=== PATIENT | female | born 1995 | race Two or more races ===

== ENCOUNTER 2021-03-19 16:52 | Emergency (ER) | payer OTHER ==
[~2021-03-19] VITALS: Ht 157.5 cm; Wt 59.3 kg
[2021-03-19] MEDS ORDERED: SODIUM CHLORIDE 0.9% 1,000ML IVBOLUS ONE (17:30)
[2021-03-19] MEDS ORDERED: ONDANSETRON 2MG/ML, 2ML IVPush ONE ×2 (17:30→19:30)
[2021-03-19] MEDS ORDERED: MAALOX/HYOSCYAMINE/LIDOCAINE 45 ML BTL PO ONE (17:30)
[2021-03-19] MEDS ORDERED: SODIUM CHLORIDE FLUSH 10ML SYR IVF ONE (17:30)
[2021-03-19] MEDS ORDERED: MAALOX/HYOSCYAMINE/LIDOCAINE 45 ML BTL ONE (17:33)
[2021-03-19] MEDS ORDERED: ONDANSETRON 2MG/ML, 2ML ONE ×2 (17:33→19:02)
--- NOTE | 2021-03-19 18:00 | NUR ---
PT STATES HAS HAD ABD PAIN 06/23 WITH N/V SINCE THIS AM WENT TO A URGENT CARE CLINIC AND THREW ANTI NAUSEA MEDICATION SHORTLY AFTER. PT CONTINUES TO VOMIT ON ARRIVAL WITH ABD CRAMPING IN CENTER OF ABD. IV MEDICATION GIVEN AFTER ULTRASOUND AND IV BOLUS INFUSING
[2021-03-19 18:30] LABS: BASOPHILS % (AUTO) 0 % (0-1); EOSINOPHILS % (AUTO) 0 % (1-7); LYMPHOCYTES % (AUTO) 11 % (22-44); MEAN CORPUSCULAR HEMOGLOBIN 30.9 pg (27.0-34.8); MEAN CORPUSCULAR HGB CONC 34.6 g/dL (32.4-35.8); MEAN PLATELET VOLUME 7.2 fL (7.4-10.4); MONOCYTES % (AUTO) 4 % (2-9); NEUTROPHILS % (AUTO) 85 % (42-75); PLATELET COUNT 394 x10^3/uL (130-400); RED BLOOD COUNT 5.12 x10^6/uL (3.82-5.3); RED CELL DISTRIBUTION WIDTH 13.5 % (9.6-15.2)
[2021-03-19 18:34] LABS: ALANINE AMINOTRANSFERASE 33 U/L (12-78); ALBUMIN 4.6 g/dL (3.4-5.0); ANION GAP 7 mmol/L (5-15); CALCIUM 9.2 mg/dL (8.5-10.1); CHLORIDE 109 mmol/L (98-107); CREATININE 0.98 mg/dL (0.55-1.02)
[2021-03-19 18:38] LABS: ALKALINE PHOSPHATASE 75 U/L (45-117); BILIRUBIN,TOTAL 0.6 mg/dL (0.2-1.0); TOTAL PROTEIN 9.2 g/dL (6.4-8.2)
[2021-03-19 18:50] LABS: MD SCAN
[2021-03-19] MEDS ORDERED: MORPHINE SULFATE 4 MG/ML, 1ML ONE ×2 (19:02→20:42)
--- NOTE | 2021-03-19 19:04 | NUR ---
PT DID NOT TOLERATE GI COCKTAIL AND VOMITED. C/O CONTINUED ABDOMINAL PAIN. AWARE AND ADDITIONAL ORDERS RECEIVED. UOB TO BATHROOM WITHOUT ASSISTANCE BUT UNABLE TO GIVE URINE SAMPLE. REPORT TO CATHERINE NGUYỄN
--- NOTE | 2021-03-19 19:10 | NUR ---
RECEIVED BS REPORT FROM [facility] TO ASSUME CARE OF PT. PT. C/O N/V DESPITE MEDS. PT. C/O 06/23 PAIN TO ABD. DISCUSSED WITH MD AND NEW ORDERS RECEIVED; PT. MEDICATED PER DEC. PT. AMBULATED ACROSS BARRETT TO BUT WAS UNABLE TO PROVIDE URINE SAMPLE. NS BOLUS INFUSING WELL.
[2021-03-19] MEDS ORDERED: MORPHINE SULFATE 4 MG/ML, 1ML IVPush PRN ×2 (19:30→20:30)
[2021-03-19] MEDS ORDERED: OMNIPAQUE 350 MG/ML, 100ML BOTTLE ONE (20:30)
--- NOTE | 2021-03-19 20:32 | NUR ---
PT. C/O 05/[address] MUNGUIA WAS IN FOR RECHECK AND TO DISCUSS PLAN FOR CT.
--- NOTE | 2021-03-19 20:45 | NUR ---
PT. MEDICATED FOR CONTINUED PAIN PER DEC. PT. TO CT VIA DANIEL AT THIS TIME.
[2021-03-19] MEDS ORDERED: METOCLOPRAMIDE 5 MG/ML, 2ML IVPush ONE (21:30)
[2021-03-19] MEDS ORDERED: METOCLOPRAMIDE 5 MG/ML, 2ML ONE (21:32)
[2021-03-19 21:59] VITALS: BP 119/88
== END 2021-03-19 22:06 | disposition home or self-care (01) ==
LOC: ED 19:25
DX: R10.13 Epigastric pain (principal); R11.2 Nausea with vomiting, unspecified; R19.7 Diarrhea, unspecified
CPT/HCPCS: 36415; 74177; 76700; 80053; 83690; 84703; 85025; 96361; 96374; 96375; 96376; 99285; J2270; J2405; J2765; J7030; Q9967

== ENCOUNTER 2021-03-22 03:30 | Emergency (ER) | payer OTHER ==
[~2021-03-22] VITALS: Ht 160 cm; Wt 59.2 kg
--- NOTE | 2021-03-22 03:46 | NUR ---
PT PRESENTS TO ED WITH ABD PAIN WITH N/V SINCE 1899 YESTERDAY. PT STATES IT FEELS LIKE THERE IS SOMETHING STUCK AND THAT'S WHY I HAVE TO THROW UP. PT IS HOOKED TO THE MONITORS AND IN A GOWN. RESTING ON GURNEY
[2021-03-22] MEDS ORDERED: DIPHENHYDRAMINE 50 MG/ML, 1ML IVPush ONE (04:00)
[2021-03-22] MEDS ORDERED: MORPHINE SULFATE 4 MG/ML, 1ML IVPush PRN (04:00)
[2021-03-22] MEDS ORDERED: SODIUM CHLORIDE 0.9% 1,000ML IVBOLUS ONE (04:00)
[2021-03-22] MEDS ORDERED: ONDANSETRON 2MG/ML, 2ML IVPush ONE (04:00)
[2021-03-22] MEDS ORDERED: ONDANSETRON 2MG/ML, 2ML ONE (04:01)
[2021-03-22] MEDS ORDERED: DIPHENHYDRAMINE 50 MG/ML, 1ML ONE (04:01)
[2021-03-22] MEDS ORDERED: MORPHINE SULFATE 4 MG/ML, 1ML ONE (04:02)
--- NOTE | 2021-03-22 04:10 | NUR ---
20 G IV TO RIGHT AC, PT MEDICATED, RESTING ON GURNEY
[2021-03-22 04:18] LABS: BASOPHILS % (AUTO) 0 % (0-1); EOSINOPHILS % (AUTO) 0 % (1-7); LYMPHOCYTES % (AUTO) 11 % (22-44); MEAN CORPUSCULAR HEMOGLOBIN 31.4 pg (27.0-34.8); MEAN CORPUSCULAR HGB CONC 35.3 g/dL (32.4-35.8); MEAN PLATELET VOLUME 7.1 fL (7.4-10.4); MONOCYTES % (AUTO) 4 % (2-9); NEUTROPHILS % (AUTO) 85 % (42-75); PLATELET COUNT 367 x10^3/uL (130-400); RED CELL DISTRIBUTION WIDTH 12.9 % (9.6-15.2)
[2021-03-22 04:27] LABS: ALANINE AMINOTRANSFERASE 29 U/L (12-78); ALBUMIN 4.1 g/dL (3.4-5.0); ANION GAP 12 mmol/L (5-15); CALCIUM 8.6 mg/dL (8.5-10.1); CHLORIDE 106 mmol/L (98-107); CREATININE 0.96 mg/dL (0.55-1.02)
[2021-03-22 04:31] LABS: ALKALINE PHOSPHATASE 68 U/L (45-117); BILIRUBIN,TOTAL 0.5 mg/dL (0.2-1.0)
--- NOTE | 2021-03-22 04:35 | NUR ---
PT RESTING ON GURNEY, DENIES NEEDS OF THIS TIME.
[2021-03-22] MEDS ORDERED: METOCLOPRAMIDE 5 MG/ML, 2ML ONE (05:27)
[2021-03-22] MEDS ORDERED: METOCLOPRAMIDE 5 MG/ML, 2ML IVPush ONE (05:30)
--- NOTE | 2021-03-22 05:58 | NUR ---
Patient/Caregiver given discharge instructions and they have confirmed that they understand the instructions. Patient ambulatory with steady gait.
[2021-03-22 05:59] VITALS: BP 111/80
== END 2021-03-22 06:08 | disposition home or self-care (01) ==
LOC: ED 04:28
DX: R10.13 Epigastric pain (principal); R11.2 Nausea with vomiting, unspecified; F12.129 Cannabis abuse with intoxication, unspecified; Z90.49 Acquired absence of other specified parts of digestive tract
CPT/HCPCS: 36415; 80053; 83690; 84703; 85025; 96361; 96374; 96375; 99284; J1200; J2270; J2405; J2765; J7030

== ENCOUNTER 2021-03-24 08:36 | Emergency (ER) | payer OTHER ==
[~2021-03-24] VITALS: Ht 160 cm; Wt 58.7 kg
[2021-03-24] MEDS ORDERED: ZIPRASIDONE 20 MG INJ IM ONE ×2 (09:23→09:30)
--- NOTE | 2021-03-24 09:37 | NUR ---
patient up to restroom to void-unable to obtain ua medicated per emar for rlq/right flank pain at 07/23 lab at bedside at [id number] Records requested from [facility] at 0999
[2021-03-24 09:46] LABS: BASOPHILS % (AUTO) 0 % (0-1); EOSINOPHILS % (AUTO) 0 % (1-7); LYMPHOCYTES % (AUTO) 19 % (22-44); MEAN CORPUSCULAR HEMOGLOBIN 30.9 pg (27.0-34.8); MEAN PLATELET VOLUME 7.1 fL (7.4-10.4); MONOCYTES % (AUTO) 9 % (2-9); NEUTROPHILS % (AUTO) 72 % (42-75); PLATELET COUNT 384 x10^3/uL (130-400); RED BLOOD COUNT 4.84 x10^6/uL (3.82-5.3)
[2021-03-24 09:57] LABS: ALANINE AMINOTRANSFERASE 45 U/L (12-78); ALBUMIN 4.1 g/dL (3.4-5.0); ANION GAP 13 mmol/L (5-15); CALCIUM 8.9 mg/dL (8.5-10.1); CHLORIDE 104 mmol/L (98-107); CREATININE 0.98 mg/dL (0.55-1.02)
[2021-03-24 10:02] LABS: ALKALINE PHOSPHATASE 56 U/L (45-117); BILIRUBIN,TOTAL 0.8 mg/dL (0.2-1.0); TOTAL PROTEIN 7.5 g/dL (6.4-8.2)
[2021-03-24 10:02] LABS: MICROSCOPIC INDICATED
--- NOTE | 2021-03-24 10:26 | NUR ---
WITH REASSESSMENT RIGHT FLANK PAIN UNCHANGED (07/23) ERP MADE AWARE, ASKED FOR ADDITIONAL MEDICATIONS/FURTHER WORKUP REPORT TO CHASTITY NGUYỄN
[2021-03-24] MEDS ORDERED: MORPHINE SULFATE 4 MG/ML, 1ML IVPush PRN (11:00)
[2021-03-24] MEDS ORDERED: METOCLOPRAMIDE 5 MG/ML, 2ML ONE (11:07)
[2021-03-24] MEDS ORDERED: MORPHINE SULFATE 4 MG/ML, 1ML ONE (11:07)
[2021-03-24] MEDS ORDERED: DIPHENHYDRAMINE 50 MG/ML, 1ML ONE (11:07)
--- NOTE | 2021-03-24 11:08 | NUR ---
MEDICATED PER EMAR FOR CONTINUED RLQ PAIN AT 07/23
--- NOTE | 2021-03-24 11:23 | NUR ---
report taken from [facility], care assumed at this time.
--- NOTE | 2021-03-24 11:58 | NUR ---
PT SLEEPING, RESPS EVEN AND UNLABORED. BP AND SPO2 MONITORS IN PLACE. REPORT TO BREAK RN IRASEMA.
[2021-03-24] MEDS ORDERED: DIPHENHYDRAMINE 50 MG/ML, 1ML IVPush ONE (12:00)
[2021-03-24] MEDS ORDERED: METOCLOPRAMIDE 5 MG/ML, 2ML IVPush ONE (12:00)
--- NOTE | 2021-03-24 13:00 | NUR ---
PT SLEEPING, RESPS EVEN AND UNLABORED. BP AND SPO2 MONITORS IN PLACE.
--- NOTE | 2021-03-24 14:00 | NUR ---
PT SLEEPING, RESPS EVEN AND UNLABORED. PT TO BE DC'D WHEN AWAKE AND ALERT.
[2021-03-24 15:05] VITALS: BP 134/86
--- NOTE | 2021-03-24 15:09 | NUR ---
PT A&O, RESPS EVEN AND UNLABORED. GIVEN WATER, TOLERATED WELL WITH NO N/V. PT HAS NO COMPLAINT AT THIS TIME. PT REQUESTS PAIN MEDICATION FOR DISCHARGE, AURELIA JIMENEZ NOTIFIED. EDPA DECLINES TO ORDER AT THIS TIME. PT GIVEN DC INSTRUCTIONS WITH SCRIPT FOR TYLENOL/IBUPROFEN AND GI FOLLOW UP. PT HAS GI FOLLOW UP IN SEVERAL DAYS. PT GIVEN DIETARY EDUCATION AND RETURN CRITERIA. PT EDUCATED NOT TO DRIVE SEDATIVE MEDS WERE ADMINISTERED IN ED. PIV DC'D WITH TIP INTACT. PT AMBULATORY TO DC DESK WITH STEADY GAIT, ACCOMPANIED BY MOTHER WHO IS DRIVING HER HOME.
== END 2021-03-24 15:07 | disposition home or self-care (01) ==
LOC: ED 08:40
DX: R11.2 Nausea with vomiting, unspecified (principal); R10.84 Generalized abdominal pain; R31.9 Hematuria, unspecified; R00.0 Tachycardia, unspecified; Z90.49 Acquired absence of other specified parts of digestive tract
CPT/HCPCS: 36415; 80053; 81001; 83690; 84703; 85025; 96372; 96374; 96375; 99285; J1200; J2270; J2765; J3486

== ENCOUNTER 2021-03-25 00:04 | Emergency (ER) | payer OTHER ==
[~2021-03-25] VITALS: Ht 160 cm; Wt 58.0 kg
--- NOTE | 2021-03-25 00:28 | NUR ---
clinical research nurse: pt from lobby to room 40
[2021-03-25] MEDS ORDERED: MAALOX/HYOSCYAMINE/LIDOCAINE 45 ML BTL PO ONE (01:00)
[2021-03-25] MEDS ORDERED: DICYCLOMINE 10 MG/ML, 2ML IM ONE (01:00)
[2021-03-25] MEDS ORDERED: MORPHINE SULFATE 4 MG/ML, 1ML IVPush PRN (01:00)
[2021-03-25] MEDS ORDERED: DIAZEPAM 5 MG/ML, 2ML IV ONE (01:00)
[2021-03-25] MEDS ORDERED: SODIUM CHLORIDE 0.9% 1,000ML IVBOLUS ONE (01:00)
[2021-03-25] MEDS ORDERED: ONDANSETRON 2MG/ML, 2ML IVPush ONE (01:00)
[2021-03-25] MEDS ORDERED: SODIUM CHLORIDE FLUSH 10ML SYR IVF ONE (01:00)
[2021-03-25] MEDS ORDERED: ONDANSETRON 2MG/ML, 2ML ONE (01:09)
[2021-03-25] MEDS ORDERED: DICYCLOMINE 10 MG/ML, 2ML ONE (01:09)
[2021-03-25] MEDS ORDERED: MORPHINE SULFATE 4 MG/ML, 1ML ONE (01:09)
[2021-03-25] MEDS ORDERED: DIAZEPAM 5 MG/ML, 2ML ONE (01:09)
[2021-03-25] MEDS ORDERED: MAALOX/HYOSCYAMINE/LIDOCAINE 45 ML BTL ONE (01:10)
[2021-03-25 01:39] LABS: BASOPHILS % (AUTO) 1 % (0-1); EOSINOPHILS % (AUTO) 1 % (1-7); LYMPHOCYTES % (AUTO) 27 % (22-44); MEAN CORPUSCULAR HEMOGLOBIN 31.3 pg (27.0-34.8); MEAN CORPUSCULAR HGB CONC 35.5 g/dL (32.4-35.8); MEAN PLATELET VOLUME 7.2 fL (7.4-10.4); MONOCYTES % (AUTO) 13 % (2-9); NEUTROPHILS % (AUTO) 60 % (42-75); PLATELET COUNT 391 x10^3/uL (130-400); RED BLOOD COUNT 4.81 x10^6/uL (3.82-5.3); RED CELL DISTRIBUTION WIDTH 12.9 % (9.6-15.2)
[2021-03-25 01:48] LABS: ALANINE AMINOTRANSFERASE 57 U/L (12-78); ALBUMIN 4.3 g/dL (3.4-5.0); ANION GAP 12 mmol/L (5-15); CALCIUM 8.9 mg/dL (8.5-10.1); CHLORIDE 103 mmol/L (98-107); CREATININE 1.19 mg/dL (0.55-1.02)
[2021-03-25 01:52] LABS: ALKALINE PHOSPHATASE 61 U/L (45-117); TOTAL PROTEIN 8.1 g/dL (6.4-8.2)
[2021-03-25 02:43] LABS: MICROSCOPIC AUTO
[2021-03-25 02:57] VITALS: BP 123/68
== END 2021-03-25 02:59 | disposition home or self-care (01) ==
LOC: ED 01:00
DX: G89.29 Other chronic pain (principal); R10.84 Generalized abdominal pain; R10.13 Epigastric pain; R11.0 Nausea
CPT/HCPCS: 36415; 80053; 81001; 83690; 84703; 85025; 96361; 96372; 96374; 96375; 99284; J0500; J2270; J2405; J3360; J7030

== ENCOUNTER 2021-03-25 11:09 | Inpatient (IN) | payer OTHER ==
[~2021-03-25] VITALS: Ht 160 cm; Wt 60.7 kg
--- NOTE | 2021-03-25 11:23 | NUR ---
PT HERE FOR C/O RLQ ABD PAIN X6 DAYS, +N/V. PT STATES SHE HAS NOT HAD A BM IN 3 DAYS, SEEN IN ED EARLIER TODAY. PT ON ALL MONITORS. CALL LIGHT WITHIN REACH.
[2021-03-25] MEDS ORDERED: MAALOX/HYOSCYAMINE/LIDOCAINE 45 ML BTL ONE (11:43)
[2021-03-25] MEDS ORDERED: MAALOX/HYOSCYAMINE/LIDOCAINE 45 ML BTL PO ONE (12:00)
[2021-03-25] MEDS ORDERED: HYDROmorphone 1 MG/ML, 1ML INJ ONE (12:00)
--- NOTE | 2021-03-25 12:02 | NUR ---
PT CONTINUES TO C/O PAIN ON RLQ ABD. UPDATED ERMD. PER DR. MUNGUIA MEDICATE PT WITH 1MG DILAUDID IM.
--- NOTE | 2021-03-25 12:04 | NUR ---
1MG IM DILAUDID ADMINISTERED TO PT PER MD ORDER.
[2021-03-25] MEDS ORDERED: HYDROmorphone 1 MG/ML, 1ML INJ SQ ONE (12:11)
--- NOTE | 2021-03-25 12:44 | NUR ---
PT REPORTS PAIN RELIEF, STATES PAIN IS DOWN TO 4/10 ON PAIN SCALE.
--- NOTE | 2021-03-25 14:48 | NUR ---
PT RESTING IN NAD, STATES ABD PAIN HAS SUBSIDED SINCE MEDICATED.
--- NOTE | 2021-03-25 15:15 | NUR ---
HOSPITALIST PRESS WRITER AT BEDSIDE.
[2021-03-25] MEDS ORDERED: METOCLOPRAMIDE 5 MG/ML, 2ML IVPush PRN (15:30)
[2021-03-25] MEDS ORDERED: POLYETHYLENE GLYCOL 17 GM PACKET PO PRN (15:30)
[2021-03-25] MEDS ORDERED: BISACODYL 10 MG SUPP PR PRN (15:30)
[2021-03-25] MEDS ORDERED: ENALAPRILAT 1.25 MG/ML, 2ML IVPush PRN (15:30)
[2021-03-25] MEDS ORDERED: ONDANSETRON ODT 4 MG PO PRN (15:30)
[2021-03-25] MEDS ORDERED: ACETAMINOPHEN 325 MG TABLET PO PRN (15:30)
[2021-03-25 15:41] VITALS: BP 123/85
[2021-03-25] MEDS ORDERED: MAALOX/HYOSCYAMINE/LIDOCAINE 45 ML BTL PO PRN (16:00)
[2021-03-25] MEDS: NS + 20MEQ KCL 1,000 ML IV SCH (16:27)
[2021-03-25] MEDS: SENNA/DOCUSATE TABLET PO SCH (16:27)
[2021-03-25] MEDS: KETOROLAC 30 MG/1 ML IV PRN ×2 (17:07→23:00)
[2021-03-25] MEDS: morphine SULFATE 10 MG/ML, 1ML IVPush PRN ×5 (17:41→23:44)
[2021-03-25] MEDS: ONDANSETRON 2MG/ML, 2ML IVPush PRN (18:01)
[2021-03-25 19:26] VITALS: BP 133/89
[2021-03-26] MEDS: NS + 20MEQ KCL 1,000 ML IV SCH ×3 (00:03→20:21)
[2021-03-26] MEDS: morphine SULFATE 10 MG/ML, 1ML IVPush PRN ×5 (00:03→10:06)
[2021-03-26 00:08] VITALS: BP 130/85
[2021-03-26] MEDS: KETOROLAC 30 MG/1 ML IV PRN (04:41)
[2021-03-26 05:25] LABS: BASOPHILS % (AUTO) 1 % (0-1); EOSINOPHILS % (AUTO) 1 % (1-7); LYMPHOCYTES % (AUTO) 38 % (22-44); MEAN CORPUSCULAR HEMOGLOBIN 31.2 pg (27.0-34.8); MEAN CORPUSCULAR HGB CONC 35.3 g/dL (32.4-35.8); MEAN PLATELET VOLUME 7.3 fL (7.4-10.4); MONOCYTES % (AUTO) 13 % (2-9); NEUTROPHILS % (AUTO) 48 % (42-75); PLATELET COUNT 310 x10^3/uL (130-400); RED BLOOD COUNT 4.25 x10^6/uL (3.82-5.3); RED CELL DISTRIBUTION WIDTH 13.1 % (9.6-15.2)
[2021-03-26 05:37] LABS: ANION GAP 6 mmol/L (5-15); CALCIUM 7.9 mg/dL (8.5-10.1); CHLORIDE 109 mmol/L (98-107)
[2021-03-26 05:43] LABS: CREATININE 0.66 mg/dL (0.55-1.02)
[2021-03-26 07:00] VITALS: BP 107/63
[2021-03-26] MEDS: SENNA/DOCUSATE TABLET PO SCH ×2 (07:09→17:02)
[2021-03-26] MEDS ORDERED: PANTOPRAZOLE 40 MG IV IVPush SCH (07:30)
[2021-03-26] MEDS ORDERED: FENTANYL PF 100 MCG/2ML ONE (11:55)
[2021-03-26] MEDS ORDERED: MIDAZOLAM 1 MG/ML, 2ML ONE (11:55)
[2021-03-26] MEDS ORDERED: PROPOFOL 10 MG/ML, 20ML ONE (12:04)
[2021-03-26] MEDS ORDERED: FENTANYL PF 100 MCG/2ML IV PRN (12:30)
[2021-03-26] MEDS: ONDANSETRON 2MG/ML, 2ML IVPush PRN (13:52)
[2021-03-26] MEDS: PANTOPRAZOLE 40MG TABLET PO SCH (15:46)
[2021-03-26] MEDS ORDERED: PANTOPRAZOLE 40MG TABLET PO SCH (17:00)
[2021-03-26 17:58] VITALS: BP 115/75
[2021-03-26 20:13] VITALS: BP_SYST 120; BP_SYST 133; BP_DIAS 76; BP_DIAS 84
[2021-03-27 01:14] VITALS: BP 111/75
[2021-03-27 05:38] LABS: ANION GAP 4 mmol/L (5-15); CALCIUM 8.5 mg/dL (8.5-10.1); CHLORIDE 106 mmol/L (98-107); CREATININE 0.83 mg/dL (0.55-1.02)
[2021-03-27 06:59] VITALS: BP 114/81
[2021-03-27] MEDS: SENNA/DOCUSATE TABLET PO SCH (08:24)
[2021-03-27] MEDS: PANTOPRAZOLE 40MG TABLET PO SCH ×2 (08:25→16:21)
[2021-03-27] MEDS: KETOROLAC 30 MG/1 ML IV PRN ×2 (10:44→16:22)
[2021-03-27] MEDS: ONDANSETRON 2MG/ML, 2ML IVPush PRN (10:44)
[2021-03-27] MEDS: NS + 20MEQ KCL 1,000 ML IV SCH (10:48)
[2021-03-27 11:40] LABS: AMPHETAMINE SCREEN, URINE Negative (Negative); BARBITURATE SCREEN, URINE Negative (Negative); BENZODIAZEPINE SCREEN, URINE Positive (Negative); CANNABINOID SCREEN, URINE Positive (Negative); COCAINE SCREEN, URINE Negative (Negative); METHADONE SCREEN, URINE Negative (Negative); OPIATE SCREEN, URINE Positive (Negative)
[2021-03-27 12:25] VITALS: BP 120/86
[2021-03-27] MEDS ORDERED: MORPHINE SULFATE 4 MG/ML, 1ML IVPush ONE (18:00)
[2021-03-27 18:14] VITALS: BP 128/81
[2021-03-27 19:53] VITALS: BP 103/67
[2021-03-28 00:21] VITALS: BP 102/56
[2021-03-28] MEDS: PANTOPRAZOLE 40MG TABLET PO SCH (07:33)
[2021-03-28] MEDS: SENNA/DOCUSATE TABLET PO SCH (07:33)
[2021-03-28 08:19] VITALS: BP 118/75
[2021-03-28] MEDS ORDERED: ONDA4TAB7 PO (14:39)
[2021-03-28] MEDS ORDERED: PANT40TA6 PO (14:39)
== END 2021-03-28 15:03 | disposition home or self-care (01) | DRG 392 ==
LOC: ED 14:23 → EDIP 14:32 → 4NW 15:33 → 3N 03-27 19:36 → DCLOUNGE 03-28 15:00
PROVIDERS: ADMIT Internal Medicine; ATTEND Family Medicine
PROC: 0DB68ZX Excision of Stomach, Via Natural or Artificial Opening Endoscopic, Diagnostic (ICD-10-PCS; 2021-03-26)
PROC: 0DB98ZX Excision of Duodenum, Via Natural or Artificial Opening Endoscopic, Diagnostic (ICD-10-PCS; principal; 2021-03-26 12:00)
DX: K29.70 Gastritis, unspecified, without bleeding (principal); N17.9 Acute kidney failure, unspecified; E86.0 Dehydration; E87.6 Hypokalemia; F12.90 Cannabis use, unspecified, uncomplicated; G89.29 Other chronic pain; I10 Essential (primary) hypertension; K31.9 Disease of stomach and duodenum, unspecified; K59.00 Constipation, unspecified; M43.00 Spondylolysis, site unspecified; Z82.49 Family history of ischemic heart disease and other diseases of the circulatory system; Z90.49 Acquired absence of other specified parts of digestive tract
CPT/HCPCS: 36415; 74240; 80048; 80307; 83735; 85025; 86308; 87635; 88305; 96374; G0378; J1170; J1885; J2250; J2405; J2704; J3010; J3480; C9113; J2270

== ENCOUNTER 2021-03-29 14:01 | Inpatient (IN) | payer OTHER ==
[~2021-03-29] VITALS: Ht 160 cm; Wt 60.1 kg
[~2021-03-29 14:01] MED LIST: ONDA4TAB7 PO; PANT40TA6 PO
[2021-03-29 16:10] LABS: BASOPHILS % (AUTO) 0 % (0-1); EOSINOPHILS % (AUTO) 0 % (1-7); LYMPHOCYTES % (AUTO) 11 % (22-44); MEAN CORPUSCULAR HEMOGLOBIN 30.9 pg (27.0-34.8); MEAN CORPUSCULAR HGB CONC 34.2 g/dL (32.4-35.8); MEAN PLATELET VOLUME 7.5 fL (7.4-10.4); MONOCYTES % (AUTO) 6 % (2-9); NEUTROPHILS % (AUTO) 83 % (42-75); PLATELET COUNT 409 x10^3/uL (130-400); RED BLOOD COUNT 4.99 x10^6/uL (3.82-5.3); RED CELL DISTRIBUTION WIDTH 13.3 % (9.6-15.2)
[2021-03-29 16:24] LABS: ALBUMIN 4.6 g/dL (3.4-5.0); ANION GAP 10 mmol/L (5-15); CALCIUM 9.5 mg/dL (8.5-10.1); CHLORIDE 102 mmol/L (98-107)
[2021-03-29 16:30] LABS: ALANINE AMINOTRANSFERASE 48 U/L (12-78); ALKALINE PHOSPHATASE 59 U/L (45-117); BILIRUBIN,TOTAL 0.8 mg/dL (0.2-1.0); CREATININE 1.34 mg/dL (0.55-1.02); TOTAL PROTEIN 8.5 g/dL (6.4-8.2)
--- NOTE | 2021-03-29 17:57 | NUR ---
ERMD IN TO ASSESS PT. PT AWARE OF NEED FOR UA. PARTNER AT BEDSIDE. PT VISBILY UNCOMFORTABLE, RESTLESS, CRYING.
[2021-03-29] MEDS ORDERED: DIPHENHYDRAMINE 50 MG/ML, 1ML IV ONE (18:00)
[2021-03-29] MEDS ORDERED: METOCLOPRAMIDE 5 MG/ML, 2ML IVPush ONE (18:00)
[2021-03-29] MEDS ORDERED: SODIUM CHLORIDE 0.9% 1,000 ML IV ONE (18:00)
[2021-03-29] MEDS ORDERED: METOCLOPRAMIDE 5 MG/ML, 2ML ONE (18:04)
[2021-03-29] MEDS ORDERED: DIPHENHYDRAMINE 50 MG/ML, 1ML ONE (18:04)
--- NOTE | 2021-03-29 18:50 | NUR ---
PT REPORTS SOME RELIEF FROM PAIN, NO LONGER RESTLESS OR CRYING. WARM BLANKET APPLIED PER PT REQUEST. HOB TO LEVEL OF COMFORT. SIDE RAILS UP, CALL LIGHT IN REACH, IVF INFUSING PER EMAR.
[2021-03-29] MEDS ORDERED: MORPHINE SULFATE 4 MG/ML, 1ML ONE ×2 (19:55→21:26)
[2021-03-29] MEDS: MORPHINE SULFATE 4 MG/ML, 1ML IVPush PRN ×2 (19:57→21:31)
--- NOTE | 2021-03-29 19:59 | NUR ---
PT REMEDICATED WITH DIFFERENT MEDICATIONS TO HELP PAIN WHICH HAS RETURNED TO 06/23. PT LAYING BACK IN BED WITH MOTHER AT BEDSIDE. SIDE RAILS UP, CALL LIGHT IN REACH.
[2021-03-29] MEDS ORDERED: HALOPERIDOL 5 MG/ML IV ONE ×2 (20:30→21:00)
[2021-03-29] MEDS ORDERED: HALOPERIDOL 5 MG/ML ONE (20:52)
[2021-03-29] MEDS ORDERED: PANTOPRAZOLE 40 MG IV IVPush STA (21:22)
--- NOTE | 2021-03-29 21:22 | NUR ---
PT REPORTS SOME RELIEF FROM PAIN WITH HALDOL. UP TO BATHROOM WITHOUT SUCCESSFUL URINATION. PT BACK IN BED.
[2021-03-29] MEDS ORDERED: PANTOPRAZOLE 40 MG IV ONE (21:29)
--- NOTE | 2021-03-29 21:46 | NUR ---
FIRST ATTEMPT TO CALL REPORT.
--- NOTE | 2021-03-29 21:55 | NUR ---
PT ASLEEP UPON ENTRY TO ROOM FOR REEVALUATION OF PAIN SCALE.
[2021-03-29] MEDS ORDERED: PANTOPRAZOLE 40 MG IV IVPush ONE (22:00)
[2021-03-29 22:16] VITALS: BP 114/72
[2021-03-29] MEDS ORDERED: ACETAMINOPHEN 325 MG TABLET PO PRN (23:00)
[2021-03-29] MEDS: LACTATED RINGERS 1,000 ML IV SCH (23:00)
[2021-03-29] MEDS ORDERED: POLYETHYLENE GLYCOL 17 GM PACKET PO PRN (23:00)
[2021-03-29] MEDS ORDERED: PROMETHAZINE 25 MG/ML, 1ML IM PRN (23:00)
[2021-03-29] MEDS ORDERED: BISACODYL 10 MG SUPP PR PRN (23:00)
[2021-03-29] MEDS ORDERED: LABETALOL 5MG/ML, 20ML IVPush PRN (23:00)
[2021-03-30 00:29] VITALS: BP 101/57
[2021-03-30 02:20] LABS: MICROSCOPIC INDICATED
[2021-03-30 03:34] VITALS: BP 101/57
[2021-03-30 05:36] LABS: ANION GAP 6 mmol/L (5-15); CALCIUM 8.4 mg/dL (8.5-10.1); CHLORIDE 109 mmol/L (98-107); CREATININE 0.76 mg/dL (0.55-1.02)
[2021-03-30 05:39] VITALS: BP 113/76
[2021-03-30] MEDS: PANTOPRAZOLE 40MG TABLET PO SCH (08:20)
[2021-03-30] MEDS: LACTATED RINGERS 1,000 ML IV SCH ×2 (08:24→16:59)
[2021-03-30 08:26] VITALS: BP 121/72
[2021-03-30 10:03] LABS: AMPHETAMINE SCREEN, URINE Negative (Negative); BARBITURATE SCREEN, URINE Negative (Negative); BENZODIAZEPINE SCREEN, URINE Positive (Negative); COCAINE SCREEN, URINE Negative (Negative); METHADONE SCREEN, URINE Negative (Negative); OPIATE SCREEN, URINE Positive (Negative)
[2021-03-30 10:05] LABS: CANNABINOID SCREEN, URINE Positive (Negative)
[2021-03-30 14:15] VITALS: BP 123/85
[2021-03-30] MEDS ORDERED: OMNIPAQUE 350 MG/ML, 75ML BOTTLE ONE (16:56)
[2021-03-30 19:06] VITALS: BP 123/87
[2021-03-31 00:25] VITALS: BP 110/75
[2021-03-31] MEDS: LACTATED RINGERS 1,000 ML IV SCH ×3 (00:26→10:38)
[2021-03-31 05:43] LABS: ANION GAP 8 mmol/L (5-15); CALCIUM 8.9 mg/dL (8.5-10.1); CHLORIDE 106 mmol/L (98-107)
[2021-03-31 05:44] LABS: CREATININE 0.82 mg/dL (0.55-1.02)
[2021-03-31 05:46] LABS: BASOPHILS % (AUTO) 1 % (0-1); EOSINOPHILS % (AUTO) 3 % (1-7); LYMPHOCYTES % (AUTO) 34 % (22-44); MEAN CORPUSCULAR HGB CONC 34.6 g/dL (32.4-35.8); MEAN PLATELET VOLUME 7.7 fL (7.4-10.4); MONOCYTES % (AUTO) 12 % (2-9); NEUTROPHILS % (AUTO) 50 % (42-75); PLATELET COUNT 318 x10^3/uL (130-400); RED BLOOD COUNT 4.46 x10^6/uL (3.82-5.3); RED CELL DISTRIBUTION WIDTH 13.2 % (9.6-15.2)
[2021-03-31] MEDS: PANTOPRAZOLE 40MG TABLET PO SCH (08:24)
[2021-03-31 13:22] VITALS: BP 98/67
[2021-03-31] MEDS: ONDANSETRON 2MG/ML, 2ML IVPush PRN (14:37)
[2021-03-31] MEDS: morphine SULFATE 10 MG/ML, 1ML IVPush PRN ×2 (16:09→16:42)
[2021-03-31] MEDS ORDERED: KETOROLAC 30 MG/1 ML ONE (18:35)
[2021-03-31] MEDS: KETOROLAC 30 MG/1 ML IVPush PRN (18:39)
[2021-03-31 19:04] VITALS: BP 118/77
[2021-04-01 01:07] VITALS: BP 106/69
[2021-04-01] MEDS: LACTATED RINGERS 1,000 ML IV SCH ×2 (02:53→15:33)
[2021-04-01 05:31] LABS: ANION GAP 7 mmol/L (5-15); CALCIUM 8.6 mg/dL (8.5-10.1); CHLORIDE 106 mmol/L (98-107); CREATININE 0.74 mg/dL (0.55-1.02)
[2021-04-01 07:16] VITALS: BP 110/73
[2021-04-01] MEDS: PANTOPRAZOLE 40MG TABLET PO SCH (07:30)
[2021-04-01 13:42] VITALS: BP 134/87
[2021-04-01] MEDS: morphine SULFATE 10 MG/ML, 1ML IVPush PRN ×2 (18:10→22:55)
[2021-04-01] MEDS: ONDANSETRON 2MG/ML, 2ML IVPush PRN (18:10)
[2021-04-01] MEDS: KETOROLAC 30 MG/1 ML IVPush PRN (19:28)
[2021-04-01 19:33] VITALS: BP 118/76
[2021-04-02] MEDS ORDERED: MORPHINE SULFATE 4 MG/ML, 1ML IVPush ONE (00:30)
[2021-04-02] MEDS: ONDANSETRON 2MG/ML, 2ML IVPush PRN (00:34)
[2021-04-02 01:03] VITALS: BP 138/88
[2021-04-02] MEDS: PANTOPRAZOLE 40MG TABLET PO SCH (08:41)
[2021-04-02] MEDS: LACTATED RINGERS 1,000 ML IV SCH ×2 (08:41)
[2021-04-02 08:43] VITALS: BP 123/76
[2021-04-02] MEDS: SUCRALFATE 1 GM/10 ML UDC PO SCH ×3 (11:17→19:31)
[2021-04-02 14:43] VITALS: BP 109/71
[2021-04-02 18:43] VITALS: BP 119/80
[2021-04-03 00:47] VITALS: BP 103/67
[2021-04-03 07:48] VITALS: BP 107/68
[2021-04-03] MEDS: PANTOPRAZOLE 40MG TABLET PO SCH (09:02)
[2021-04-03] MEDS: SUCRALFATE 1 GM/10 ML UDC PO SCH ×2 (09:02→12:07)
[2021-04-03] MEDS ORDERED: SUCR1ORA5 PO (11:15)
[2021-04-03 14:23] VITALS: BP 112/73
== END 2021-04-03 14:55 | disposition home or self-care (01) | DRG 391 ==
LOC: ED 14:30 → OBSVTOIN 21:06 → INTOOBSV 21:06 → EDIP 21:06 → 3N 22:15
PROVIDERS: ADMIT Family Medicine; ATTEND Family Medicine
DX: K29.00 Acute gastritis without bleeding (principal); N17.0 Acute kidney failure with tubular necrosis; F12.90 Cannabis use, unspecified, uncomplicated; E86.0 Dehydration; K59.00 Constipation, unspecified; K31.9 Disease of stomach and duodenum, unspecified; Z90.49 Acquired absence of other specified parts of digestive tract; Z79.899 Other long term (current) drug therapy
CPT/HCPCS: 36415; 70470; 74181; 80048; 80053; 80307; 81001; 83690; 84703; 85025; 87086; 96360; 96361; G0378; J1885; J2405; J2550; Q9967; C9113; J1200; J1630; J2270; J2765; J7030; J7120